=== PATIENT | male | born 1970 | race Caucasian/White ===

== ENCOUNTER 2016-12-10 07:53 | Day surgery (SDC) | payer BC ==
[~2016-12-10 07:53] MED LIST: EPINEPHRINE INJ 1 MG/10 ML DISP.SYRIN ONE; FENTANYL CITRATE INJ/PF 100 MCG/2 ML AMPUL ONE; FLUMAZENIL INJ 0.5 MG/5 ML VIAL IV ONE; GLYCOPYRROLATE INJ 0.4 MG/2 ML VIAL ONE; NALOXONE HCL INJ/PF 0.4 MG/1 ML SDV ONE; ONDANSETRON HCL INJ/PF 4 MG/2 ML SDV ONE; PROMETHAZINE HCL INJ 25 MG/1 ML VIAL ONE
[2016-12-10] MEDS: MIDAZOLAM 2 MG/2 ML INJ ONE ×3 (08:12→08:18)
[2016-12-10 09:31] VITALS: BP 121/83
[2016-12-10 10:00] LABS: ABSOLUTE EOSINOPHILS # (AUTO) 0.2 10^3/uL (0.0-0.6); ABSOLUTE LYMPHOCYTES (AUTO) 1.2 10^3/uL (0.5-4.7); ABSOLUTE MONOCYTES (AUTO) 0.4 10^3/uL (0.1-1.4); BASOPHILS % (AUTO) 0.7 % (0-2); EOSINOPHILS % (AUTO) 4.3 % (0-6); HEMATOCRIT 48.7 % (37.9-51.0); HEMOGLOBIN 16.5 g/dL (13.5-17.0); HGB HCT DIFFERENCE 0.8; LYMPHOCYTES % (AUTO) 24.7 % (13-45); MEAN CORPUSCULAR HEMOGLOBIN 32.3 pg (27.0-33.4); MEAN CORPUSCULAR HGB CONC 33.8 g/dL (32.0-36.0); MEAN CORPUSCULAR VOLUME 96 fl (80-97); MONOCYTES % (AUTO) 8.7 % (3-13); RED BLOOD COUNT 5.09 10^6/uL (4.35-5.55); RED CELL DISTRIBUTION WIDTH 13.5 % (11.5-14.0); SEGMENTED NEUTROPHILS % (AUTO) 61.6 % (42-78); WHITE BLOOD COUNT 4.9 10^3/uL (4.0-10.5)
[2016-12-10 10:14] LABS: ALANINE AMINOTRANSFERASE 58 U/L (21-72); ALBUMIN 4.7 g/dL (3.5-5.0); ALKALINE PHOSPHATASE 56 U/L (38-126); ANION GAP 12 (5-19); ASPARTATE AMINO TRANSFERASE 47 U/L (17-59); BILIRUBIN,DIRECT 0.2 mg/dL (0.0-0.4); BILIRUBIN,TOTAL 0.5 mg/dL (0.2-1.3); BLOOD UREA NITROGEN 7 mg/dL (7-20); CARBON DIOXIDE 29 mmol/L (22-30); CHLORIDE 101 mmol/L (98-107); CREATININE RESULT 0.75 mg/dL (0.52-1.25); GLUCOSE 130 mg/dL (75-110); IRON 92.1 ug/dL (49-181); POTASSIUM 4.5 mmol/L (3.6-5.0); SODIUM 141.7 mmol/L (137-145); TOTAL PROTEIN 7.2 g/dL (6.3-8.2)
[2016-12-10 10:44] LABS: CARCINOEMBRYONIC ANTIGEN 5.7 ng/mL (<3.0)
--- NOTE | 2016-12-10 11:54 | OPERATIVE REPORT E ---
Operative Report NAME: SHELLEY JI : 1970 AGE: 46Y DATE OF SURGERY: 12/10/2016 ROOM: PREOPERATIVE DIAGNOSES: 1. Reflux. 2. Abdominal pain. POSTOPERATIVE DIAGNOSES: 1. Erosive gastritis. 2. Erosive esophagitis. 3. Duodenitis. PROCEDURE: Esophagoscopy, gastroscopy, duodenoscopy. SURGEON: APRIL SAMPSON M.D. ANESTHESIA: Versed 5 mg and Fentanyl 100 mcg. TISSUE REMOVED OR ALTERED: Gastric biopsy and esophageal biopsy. PROCEDURE: After adequate sedation, the baby scope was passed under guided vision with no difficulties. Esophagoscopy: Junction at 40, the esophagus shows whitish exudate, consideration of Candidiasis, multiple biopsies obtained. No evidence of ulcers, no evidence of malignancy, just diffuse erythema, friability and whitish exudate, question Candidiasis. Gastroscopy: Shows erosions, erythema, gastritis. Duodenoscopy: Deformity in the duodenal bulb with some scarring and duodenitis. No definite ulcers seen on today's exam. CONCLUSIONS: 1. Esophagitis. 2. Gastritis. 3. Duodenitis. PLAN: 1. Hold aspirin and nonsteroidals. 2. Encouraged to quit smoking. 3. Avoid alcohol. 4. Awaiting biopsy results. 5. Follow-up office visit in the next few days. DICTATING PHYSICIAN: APRIL SAMPSON M.D. 1209M 05 Y#: [id number] ID: [id number] JOB#: [id number] ACCT: [id number] cc:APRIL SAMPSON M.D. >
--- NOTE | 2016-12-10 13:41 | DISCHARGE SUMMARY E ---
Discharge Summary NAME: SHELLEY JI : 1970 AGE: 46Y ADMITTED: 12/10/2016 DISCHARGED: 12/10/2016 PROCEDURE: EGD and biopsy. HISTORY: A 46-year-old male presented with reflux, history of fatty liver, abdominal pain. Upper scope shows questioned Candidiasis, esophagitis, gastritis, and duodenitis. DISCHARGE PLAN: 1. Awaiting biopsy results. 2. Continue Nexium. 3. Hold aspirin. 4. Follow-up office visit in the next few days. 5. Encouraged to quit smoking. 6. Encouraged to avoid aspirin and nonsteroidals and to decrease or quit alcohol. FINAL DIAGNOSIS: Severe esophagitis and gastritis. DICTATING PHYSICIAN: APRIL SAMPSON M.D. [id number] PHY#: [id number] ID: [id number] JOB#: [id number] ACCT: [id number] cc:APRIL SAMPSON M.D. >
== END 2016-12-10 09:53 | disposition home or self-care (01) ==
LOC: END 07:53
PROVIDERS: ATTEND Specialist
PROC: 0DB58ZX Excision of Esophagus, Via Natural or Artificial Opening Endoscopic, Diagnostic (ICD-10-PCS; 2016-12-10)
PROC: 0DB68ZX Excision of Stomach, Via Natural or Artificial Opening Endoscopic, Diagnostic (ICD-10-PCS; principal; 2016-12-10 08:00)
DX: K21.0 Gastro-esophageal reflux disease with esophagitis (principal); K29.80 Duodenitis without bleeding; K31.7 Polyp of stomach and duodenum; F17.210 Nicotine dependence, cigarettes, uncomplicated; I10 Essential (primary) hypertension; Z72.89 Other problems related to lifestyle
CPT/HCPCS: 43239; 86677 ×3; 36415; 82378; 82728; 83540; 85025; 80053; 88342 ×2; 88305 ×2; 88312 ×2; J2250; J3010; J2405; J0171; J2310; J2550; J3490